=== PATIENT | male | born 1995 | race American Indian/Alaskan Native ===

== ENCOUNTER 2016-11-23 05:08 | Emergency (ER) | payer SELFPAY ==
[2016-11-23] MEDS ORDERED: PROVENTIL IH ONE ×2 (05:27→05:33)
[2016-11-23] MEDS ORDERED: DUONEB *Not for PRN Use IH ONE ×2 (05:27→05:32)
[2016-11-23] MEDS ORDERED: DELTASONE PO ONE (09:43)
--- NOTE | 2016-11-23 09:47 | Emergency Department Report ---
HPI - General Chief Complaint: Adult Asthma Time Seen by Provider: 11/23/16 09:43 - HPI HPI: This is a 21-year-old -Turkish male who presents to the emergency department with a complaint of an asthma exacerbation. The patient says that he was having some wheezing and shortness of breath last night that kept him from getting rest. He was using his albuterol inhaler and nebulized treatments without any relief. However the patient is feeling improved this morning. He denies any fever, chest pain, nausea, vomiting, back pain. No recent travel or sick contacts at home. Asthma is his only past medical history. He does not currently have a primary care physician as he just moved to the area. He is not a tobacco smoker or user. ED Past Medical Hx - Past Medical History Previous Medical History?: Yes Hx Asthma: Yes - Surgical History Past Surgical History?: No - Social History Smoking Status: Never Smoker Substance Use Type: None - Medications Home Medications: Home Medications Medication Instructions Recorded Confirmed Last Taken Type ALBUTEROL Inhaler [ProAir HFA 2 puff IH QID PRN #1 inhalation 11/23/16 Unknown Rx Inhaler] ALBUTEROL NEB's [Proventil 0.083% 2.5 mg IH Q6H PRN #1 box 11/23/16 Unknown Rx NEBS] predniSONE [Deltasone] 20 mg PO BID #8 tab 11/23/16 Unknown Rx ED Review of Systems ROS: Stated complaint: CHARO/ ASTHMA Other details as noted in HPI Comment: All other systems reviewed and negative Constitutional: denies: chills, fever Eyes: denies: eye pain, eye discharge, vision change ENT: denies: ear pain, throat pain Respiratory: shortness of breath, wheezing Cardiovascular: denies: chest pain, palpitations Gastrointestinal: denies: abdominal pain, nausea, diarrhea Genitourinary: denies: urgency, dysuria Musculoskeletal: denies: back pain, joint swelling, arthralgia Skin: denies: rash, lesions Neurological: denies: headache, weakness, paresthesias Physical Exam - Physical Exam Vital Signs: Vital Signs 11/23/16 11/23/16 11/23/16 05:14 05:35 05:50 Temperature 98.0 F Pulse Rate 83 Pulse Rate [ 87 87 Throughout] Respiratory 26 H Rate Respiratory 16 16 Rate [ Throughout] Blood Pressure 129/64 O2 Sat by Pulse 96 Oximetry Physical Exam: GENERAL: The patient is well-developed well-nourished. HEENT: Normocephalic. Atraumatic. Extraocular motions are intact. Patient has moist mucous membranes. NECK: Supple. Trachea is midline. CHEST/LUNGS: Clear to auscultation. There is no respiratory distress noted. HEART/CARDIOVASCULAR: Regular. There is no tachycardia. There is no gallop rub or murmur. ABDOMEN: Abdomen is soft, nontender. Patient has normal bowel sounds. There is no abdominal distention. SKIN: There is no rash. There is no edema. There is no diaphoresis. NEURO: The patient is awake, alert, and oriented. The patient is cooperative. The patient has no focal neurologic deficits. The patient has normal speech. MUSCULOSKELETAL: There is no tenderness or deformity. There is no limitation range of motion. There is no evidence of acute injury. ED Course Vital Signs 11/23/16 11/23/16 11/23/16 05:14 05:35 05:50 Temperature 98.0 F Pulse Rate 83 Pulse Rate [ 87 87 Throughout] Respiratory 26 H Rate Respiratory 16 16 Rate [ Throughout] Blood Pressure 129/64 O2 Sat by Pulse 96 Oximetry ED Medical Decision Making - Medical Decision Making 21-year-old male presents with complaint of asthma exacerbation last night and early this morning but the symptoms have appeared to resolve if not improved. There is no fever or chest pain and no signs of respiratory distress and therefore no imaging appeared to be necessary. There is no current bronchospasm so no DuoNeb or albuterol treatment was given in the emergency department. He was given a dose of prednisone and will go home on a four-day course. He was given a refill prescription of his albuterol inhaler nebulized treatment. He was given referrals for primary care. He will return to the ER with any worsening of symptoms or any acute distress. - Differential Diagnosis asthma, bronchitis, pneumonia Critical Care Time: No Critical care attestation.: If time is entered above; I have spent that time in minutes in the direct care of this critically ill patient, excluding procedure time. ED Disposition Clinical Impression: Asthma exacerbation Disposition: DC-01 TO HOME OR SELFCARE Is pt being admited?: No Condition: Good Instructions: Asthma (ED) Additional Instructions: Please follow-up with a primary care physician in the next few days if possible. Return to the emergency department with any worsening of your symptoms or any acute distress. Prescriptions: ALBUTEROL Inhaler [ProAir HFA Inhaler] 2 puff IH QID PRN #1 inhalation PRN Reason: Shortness Of Breath ALBUTEROL NEB's [Proventil 0.083% NEBS] 2.5 mg IH Q6H PRN #1 box PRN Reason: Wheezing predniSONE [Deltasone] 20 mg PO BID #8 tab Referrals: PRIMARY CAREMD [Primary Care Provider] - 3-5 Days GALI BRIGHT MD [Staff Physician] - 3-5 Days [facility] [Outside] - 3-5 Days Time of Disposition: 09:47
[2016-11-23 10:05] VITALS: BP 126/74
== END 2016-11-23 10:04 | disposition home or self-care (01) ==
LOC: ED 05:08
DX: J45.901 Unspecified asthma with (acute) exacerbation (principal)
CPT/HCPCS: 94640; 99283; J7512

== ENCOUNTER 2019-07-25 18:57 | Emergency (ER) | payer SELFPAY ==
[2019-07-25] MEDS ORDERED: IBUPROFEN 600 MG TAB PO ONE ×2 (19:28→19:32)
[2019-07-25 19:54] LABS: Basophils % (Auto) 0.5 % (0.0-1.8); Eosinophils # (Auto) 0.1 K/mm3 (0.0-0.4); Hematocrit 51.2 % (35.5-45.6); Lymphocytes # (Auto) 0.7 K/mm3 (1.2-5.4); Lymphocytes % (Auto) 9.5 % (13.4-35.0); Mean Corpuscular HGB Conc 35 % (32-34); Mean Corpuscular Volume 92 fl (84-94); Monocytes # (Auto) 1.2 K/mm3 (0.0-0.8); Monocytes % (Auto) 15.3 % (0.0-7.3); Platelet Count 246 K/mm3 (140-440); Red Blood Count 5.59 M/mm3 (3.65-5.03); Red Cell Distribution Width 12.9 % (13.2-15.2)
--- NOTE | 2019-07-25 19:56 | XRay Report ---
CHEST 2 VIEWS INDICATION / CLINICAL INFORMATION: Cough and fever. COMPARISON: None available. FINDINGS: SUPPORT DEVICES: None. HEART / MEDIASTINUM: The heart size and pulmonary vasculature are normal. LUNGS / PLEURA: No significant pulmonary or pleural abnormality. No pneumothorax. ADDITIONAL FINDINGS: There is mild thoracolumbar scoliosis. IMPRESSION: No acute findings. There is no evidence of pneumonia. Signer Name: Tiago Mac MD Signed: 07/25/2019 7:52 PM Workstation Name: [id number]
[2019-07-25 20:14] LABS: Alanine Aminotransferase 13 units/L (7-56); Albumin 4.5 g/dL (3.9-5); BUN/Creatinine Ratio 8; Blood Urea Nitrogen 10 mg/dL (9-20); Calcium 9.5 mg/dL (8.4-10.2); Hemolysis Index 19
[2019-07-25] MEDS ORDERED: dexAMETHasone 20 MG/5 ML VIAL IM ONE (21:22)
[2019-07-25] MEDS ORDERED: IPRATROPIUM/ALBUTEROL SULFATE 3 ML AMPUL.NEB IH ONE (21:22)
[2019-07-25] MEDS ORDERED: ACETAMINOPHEN 325 MG TAB PO ONE (21:23)
--- NOTE | 2019-07-25 22:27 | Emergency Department Report ---
- General Chief Complaint: Adult Asthma Stated Complaint: ASTHMA/BODY PAIN/WEAK Source: patient Mode of arrival: Ambulatory Limitations: No Limitations - History of Present Illness Initial Comments: Patient is a 24-year-old -[place] male with a history of asthma and who does not use any inhalers at home as the exacerbations are occasional presents to the ED with acute onset persistent severe diffuse body aches and pains, nasal and sinus congestion, wheezing, shortness of breath, dry cough, intermittent fever of up to 103 F with chills for the last 24 hours. Patient states that he has been taking [id number] cough decongestants with no relief. Patient denies any knowledge of anyone else at work with similar symptoms or at home. Patient denies dizziness, syncope, chest pain, shortness of breath, abdominal pain, nausea, vomiting, sore throat, dysuria or urinary frequency and urgency and diarrhea. MD Complaint: fever, cough, sore throat, rhinorrhea, nasal congestion, sinus pain, other (diffuse body aches and pain) -: Sudden, hour(s) (24) Severity: severe Severity scale (0 -10): 7 Quality: sharp, aching Consistency: constant Improves With: NSAID Worsens With: nothing Associated Symptoms: denies other symptoms, fever, chills, myalgias, headache, rhinorrhea, nasal congestion, sore throat, cough, shortness of breath. denies: stiff neck, chest pain, abdominal pain, nausea, vomiting, diarrhea, dysuria, rash, confusion, weight loss, epistaxis, ear pain Treatments Prior to Arrival: Acetaminophen - Related Data Previous Rx's Medication Instructions Recorded Last Taken Type ALBUTEROL NEB's [Proventil 0.083% 2.5 mg IH Q6H PRN #1 box 11/23/16 Unknown Rx NEBS] predniSONE [Deltasone] 20 mg PO BID #8 tab 11/23/16 Unknown Rx Albuterol INH(or & Nicu Only) 2 puff IH QID PRN #1 inhalation 07/25/19 Unknown Rx [ProAir HFA Inhaler] Benzonatate [Tessalon Perles] 100 mg PO Q8HR #30 capsule 07/25/19 Unknown Rx Cetirizine HCl [Zyrtec 10mg tab] 10 mg PO DAILY #30 tablet 07/25/19 Unknown Rx Doxycycline Hyclate 100 mg PO Q12H #20 tablet. 07/25/19 Unknown Rx Ibuprofen [Motrin] 600 mg PO Q8H PRN #24 tablet 07/25/19 Unknown Rx methylPREDNISolone [Medrol 4MG 4 mg PO DAILY #21 tab.ds.pk 07/25/19 Unknown Rx DOSEPAK (21 tabs)] Allergies Allergy/AdvReac Type Severity Reaction Status Date / Time No Known Allergies Allergy Verified 11/23/16 05:14 ED Review of Systems ROS: Stated complaint: ASTHMA/BODY PAIN/WEAK Other details as noted in HPI Constitutional: chills, fever, malaise, weakness Eyes: denies: eye pain, eye discharge, vision change ENT: denies: ear pain, throat pain Respiratory: cough, shortness of breath, wheezing Cardiovascular: denies: chest pain, palpitations Endocrine: no symptoms reported Gastrointestinal: denies: abdominal pain, nausea, vomiting, diarrhea Genitourinary: denies: urgency, dysuria Musculoskeletal: back pain, arthralgia, myalgia. denies: joint swelling Skin: denies: rash, lesions Neurological: headache. denies: weakness, paresthesias Psychiatric: denies: anxiety, depression Hematological/Lymphatic: denies: easy bleeding, easy bruising ED Past Medical Hx - Past Medical History Previous Medical History?: Yes Hx Asthma: Yes - Surgical History Past Surgical History?: No - Social History Smoking Status: Never Smoker Substance Use Type: None - Medications Home Medications: Home Medications Medication Instructions Recorded Confirmed Last Taken Type ALBUTEROL NEB's [Proventil 0.083% 2.5 mg IH Q6H PRN #1 box 11/23/16 Unknown Rx NEBS] predniSONE [Deltasone] 20 mg PO BID #8 tab 11/23/16 Unknown Rx Albuterol INH(or & Nicu Only) 2 puff IH QID PRN #1 inhalation 07/25/19 Unknown Rx [ProAir HFA Inhaler] Benzonatate [Tessalon Perles] 100 mg PO Q8HR #30 capsule 07/25/19 Unknown Rx Cetirizine HCl [Zyrtec 10mg tab] 10 mg PO DAILY #30 tablet 07/25/19 Unknown Rx Doxycycline Hyclate 100 mg PO Q12H #20 tablet. 07/25/19 Unknown Rx Ibuprofen [Motrin] 600 mg PO Q8H PRN #24 tablet 07/25/19 Unknown Rx methylPREDNISolone [Medrol 4MG 4 mg PO DAILY #21 tab.ds.pk 07/25/19 Unknown Rx DOSEPAK (21 tabs)] ED Physical Exam - General Limitations: No Limitations General appearance: alert, in no apparent distress - Head Head exam: Present: atraumatic, normocephalic, normal inspection - Eye Eye exam: Present: normal appearance, PERRL, EOMI Pupils: Present: normal accommodation - ENT ENT exam: Present: normal orophraynx, mucous membranes moist, TM's normal bilaterally, normal external ear exam, other (Grossly congested nasal passages) - Neck Neck exam: Present: normal inspection, full ROM. Absent: tenderness - Respiratory Respiratory exam: Present: wheezes (Moderate coarse wheezes throughout). Absent: respiratory distress, chest wall tenderness, accessory muscle use, prolonged expiratory - Cardiovascular Cardiovascular Exam: Present: normal rhythm, tachycardia, normal heart sounds. Absent: systolic murmur, diastolic murmur, rubs, gallop - GI/Abdominal GI/Abdominal exam: Present: soft, normal bowel sounds. Absent: tenderness, guarding, hyperactive bowel sounds, hypoactive bowel sounds - Extremities Exam Extremities exam: Present: normal inspection, full ROM, normal capillary refill - Back Exam Back exam: Present: normal inspection, full ROM. Absent: tenderness, CVA tenderness (R), muscle spasm, paraspinal tenderness, vertebral tenderness - Neurological Exam Neurological exam: Present: alert, oriented X3, CN II-XII intact, normal gait, reflexes normal - Psychiatric Psychiatric exam: Present: normal affect, normal mood - Skin Skin exam: Present: warm, dry, intact, normal color. Absent: rash ED Course Vital Signs 07/25/19 07/25/19 07/25/19 19:01 19:09 19:32 Temperature 99.8 F H 102.5 F H Pulse Rate 121 H 127 H Respiratory 18 18 18 Rate Blood Pressure 121/78 121/78 Blood Pressure [Right] O2 Sat by Pulse 93 93 Oximetry 07/25/19 22:32 Temperature 98.0 F Pulse Rate 94 H Respiratory 16 Rate Blood Pressure Blood Pressure 118/78 [Right] O2 Sat by Pulse 98 Oximetry ED Medical Decision Making - Lab Data Result diagrams: 07/25/19 19:34 07/25/19 19:34 - Radiology Data Radiology results: report reviewed, image reviewed Chest x-ray shows no acute cardiopulmonary abnormalities or pneumonitis - Medical Decision Making This is a 24-year-old male with a history of asthma who presented to the ED with acute onset persistent nasal and sinus congestion, severe diffuse body aches and pains, intermittent fever of up to 103 F with chills, dry cough with wheezing and lack of appetite. In the ED, patient is alert and oriented x3 and is not in distress but febrile and tachycardic in triage. Patient received DuoNeb treatment in the ED and also received steroid and antipyretics. On reevaluation, patient's fever is well controlled with medications. The tachycardia is also well controlled. Chest x-ray shows no acute cardiopulmonary abnormalities or pneumonitis. Rapid influenza and rapid strep test were negative. Patient felt better with the treatment and was discharged home on medications. Patient was advised to follow-up with his primary care physician in 5 to 7 days for reevaluation or return to the ED immediately if symptoms get worse. - Differential Diagnosis Flu; strep pharyngitis; Pneumonia; Bronchitis; URI Critical care attestation.: If time is entered above; I have spent that time in minutes in the direct care of this critically ill patient, excluding procedure time. ED Disposition Clinical Impression: Acute upper respiratory infection, Fever and chills, Flu-like symptoms Asthmatic bronchitis with acute exacerbation Qualifiers: Asthma severity: mild Asthma persistence: intermittent Qualified Code(s): J45.21 - Mild intermittent asthma with (acute) exacerbation Disposition: DC-01 TO HOME OR SELFCARE Is pt being admited?: No Does the pt Need Aspirin: No Condition: Stable Instructions: Asthma (ED), Upper Respiratory Infection (ED), Acute Bronchitis (ED) Additional Instructions: Take medications with food, drink plenty of fluids and follow-up with your primary care physician in 5 to 7 days for reevaluation. Return to the ED immediately if symptoms get worse. Prescriptions: Doxycycline Hyclate 100 mg PO Q12H #20 tablet. methylPREDNISolone [Medrol 4MG DOSEPAK (21 tabs)] 4 mg PO DAILY #21 tab.ds.pk Ibuprofen [Motrin] 600 mg PO Q8H PRN #24 tablet PRN Reason: Pain Albuterol INH(or & Nicu Only) [ProAir HFA Inhaler] 2 puff IH QID PRN #1 inhalation PRN Reason: Shortness Of Breath Benzonatate [Tessalon Perles] 100 mg PO Q8HR #30 capsule Cetirizine HCl [Zyrtec 10mg tab] 10 mg PO DAILY #30 tablet Referrals: [facility] [Outside] - 7-10 days Forms: Work/School Release Form(ED) Time of Disposition: 22:25 Print Language: MAORI
[2019-07-25 22:33] VITALS: BP 118/78
== END 2019-07-25 22:39 | disposition home or self-care (01) ==
LOC: ED 18:57
DX: J45.901 Unspecified asthma with (acute) exacerbation (principal); J06.9 Acute upper respiratory infection, unspecified; J11.1 Influenza due to unidentified influenza virus with other respiratory manifestations
CPT/HCPCS: 36415; 71046; 80053; 82140; 85025; 87116; 87400; 87430; 96372; 99284; J1100

== ENCOUNTER 2019-09-06 09:23 | Emergency (ER) | payer SELFPAY | END 2019-09-06 10:47 | disposition home or self-care (01) | LOC: ED 09:23 | DX: J45.901 Unspecified asthma with (acute) exacerbation (principal); Z79.899 Other long term (current) drug therapy | CPT/HCPCS: 71046; 94640; 99283; J7512 ==

== ENCOUNTER 2019-11-18 06:24 | Emergency (ER) | payer SELFPAY ==
[2019-11-18] MEDS ORDERED: dexAMETHasone 20 MG/5 ML VIAL IM ONE (08:58)
[2019-11-18] MEDS ORDERED: IPRATROPIUM/ALBUTEROL SULFATE 3 ML AMPUL.NEB IH ONE (08:58)
[2019-11-18 09:23] VITALS: BP 133/73
--- NOTE | 2019-11-18 09:23 | Emergency Department Report ---
ED Asthma HPI - General Chief Complaint: Adult Asthma Stated Complaint: ASTHMA Time Seen by Provider: 11/18/19 08:58 Source: patient Mode of arrival: Ambulatory Limitations: No Limitations - History of Present Illness Initial Comments: Patient is a 24-year-old male who presents emergency room with complaints of an asthma exacerbation that began around 1 AM this morning. He has associated shortness of breath and wheezing. He states that he has been out of his albuterol inhaler for a couple of weeks. He states that he accidentally left his nebulizer machine in [place] but plans to go get his machine in the next couple of days and states that he does have nebulizer solution. He denies any fever, vomiting, diarrhea, cough. He denies any recent travel or sick contacts. He does not have a primary care doctor. He states that he is a social smoker even despite his asthma. He denies any other past medical history or allergies to medications. - Related Data Previous Rx's Medication Instructions Recorded Last Taken Type ALBUTEROL NEB's [Proventil 0.083% 2.5 mg IH TID PRN #1 box 09/06/19 Unknown Rx NEBS] Albuterol INH(or & Nicu Only) 2 puff IH QID PRN #1 inhalation 09/06/19 Unknown Rx [ProAir HFA Inhaler] Cetirizine HCl [ZyrTEC 10mg cap] 10 mg PO DAILY #30 capsule 09/06/19 Unknown Rx Fluticasone [Flonase] 1 spray NS QDAY #1 bottle 09/06/19 Unknown Rx predniSONE [Deltasone] 20 mg PO DAILY #5 tablet 09/06/19 Unknown Rx Albuterol INH(or & Nicu Only) 2 puff IH QID PRN #8.5 gram 11/18/19 Unknown Rx [ProAir HFA Inhaler] Prednisone [predniSONE 10 mg 10 mg PO .TAPER #1 tab.ds.pk 11/18/19 Unknown Rx (6-Day Pack, 21 Tabs)] Allergies Allergy/AdvReac Type Severity Reaction Status Date / Time No Known Allergies Allergy Verified 11/18/19 07:03 ED Review of Systems ROS: Stated complaint: ASTHMA Other details as noted in HPI Comment: All other systems reviewed and negative ED Past Medical Hx - Past Medical History Hx Asthma: Yes - Social History Smoking Status: Never Smoker Substance Use Type: Alcohol, Marijuana - Medications Home Medications: Home Medications Medication Instructions Recorded Confirmed Last Taken Type ALBUTEROL NEB's [Proventil 0.083% 2.5 mg IH TID PRN #1 box 09/06/19 Unknown Rx NEBS] Albuterol INH(or & Nicu Only) 2 puff IH QID PRN #1 inhalation 09/06/19 Unknown Rx [ProAir HFA Inhaler] Cetirizine HCl [ZyrTEC 10mg cap] 10 mg PO DAILY #30 capsule 09/06/19 Unknown Rx Fluticasone [Flonase] 1 spray NS QDAY #1 bottle 09/06/19 Unknown Rx predniSONE [Deltasone] 20 mg PO DAILY #5 tablet 09/06/19 Unknown Rx Albuterol INH(or & Nicu Only) 2 puff IH QID PRN #8.5 gram 11/18/19 Unknown Rx [ProAir HFA Inhaler] Prednisone [predniSONE 10 mg 10 mg PO .TAPER #1 tab.ds.pk 11/18/19 Unknown Rx (6-Day Pack, 21 Tabs)] ED Physical Exam - General Limitations: No Limitations General appearance: alert, in no apparent distress - Head Head exam: Present: atraumatic, normocephalic - Eye Eye exam: Present: normal appearance - ENT ENT exam: Present: mucous membranes moist - Respiratory Respiratory exam: Present: wheezes (bilaterally lower lungs). Absent: respiratory distress, rales, rhonchi, stridor, chest wall tenderness, accessory muscle use, decreased breath sounds, prolonged expiratory - Cardiovascular Cardiovascular Exam: Present: regular rate, normal rhythm, normal heart sounds. Absent: systolic murmur, diastolic murmur, rubs, gallop - Neurological Exam Neurological exam: Present: alert, oriented X3 - Psychiatric Psychiatric exam: Present: normal affect, normal mood - Skin Skin exam: Present: warm, dry, intact ED Course Vital Signs 11/18/19 07:01 Temperature 97.8 F Pulse Rate 86 Respiratory 18 Rate Blood Pressure 133/73 O2 Sat by Pulse 97 Oximetry ED Medical Decision Making - Medical Decision Making Patient is a 24-year-old male who presents emergency room with complaints of an asthma exacerbation that began around 1 AM this morning. He has associated shortness of breath and wheezing. He states that he has been out of his albuterol inhaler for a couple of weeks. He states that he accidentally left his nebulizer machine in [place] but plans to go get his machine in the next couple of days and states that he does have nebulizer solution. He denies any fever, vomiting, diarrhea, cough. He denies any recent travel or sick contacts. He does not have a primary care doctor. He states that he is a social smoker even despite his asthma. He denies any other past medical history or allergies to medications. vitals are normal. on exam: wheezing present in the bilaterally lower lungs, no rhonchi, no rales, no respiratory distress, no accessory muscle use, no stridor. Patient given DuoNeb and dexamethasone injection. After treatment, wheezing has completely resolved and patient is feeling much better and ready to go home. Patient given prescription for albuterol inhaler and prednisone Dosepak. Advised patient to please take medication as prescribed. Please follow-up with a primary care doctor for management of your chronic asthma. Avoid smoking. Return to emergency room for any new or worsening symptoms. Critical care attestation.: If time is entered above; I have spent that time in minutes in the direct care of this critically ill patient, excluding procedure time. ED Disposition Clinical Impression: Asthma Qualifiers: Asthma severity: unspecified severity Asthma persistence: unspecified Asthma complication type: with acute exacerbation Qualified Code(s): J45.901 - Unsp ecified asthma with (acute) exacerbation Disposition: DC-01 TO HOME OR SELFCARE Is pt being admited?: No Does the pt Need Aspirin: No Condition: Stable Instructions: Asthma (ED) Additional Instructions: please take medication as prescribed. Please follow-up with a primary care doctor for management of your chronic asthma. Avoid smoking. Return to emergency room for any new or worsening symptoms. Prescriptions: Prednisone [predniSONE 10 mg (6-Day Pack, 21 Tabs)] 10 mg PO .TAPER #1 tab.ds.pk Albuterol INH(or & Nicu Only) [ProAir HFA Inhaler] 2 puff IH QID PRN #8.5 gram PRN Reason: Shortness Of Breath Referrals: SHARRI ALDRIDGE MD [Staff Physician] - 3-5 Days [facility] [Provider Group] - 3-5 Days [facility] [place] [Outside] - 3-5 Days [facility] [Outside] - 3-5 Days Time of Disposition: 10:35 Print Language: BENGALI
== END 2019-11-18 10:55 | disposition home or self-care (01) ==
LOC: ED 06:24
DX: J44.9 Chronic obstructive pulmonary disease, unspecified (principal); F17.200 Nicotine dependence, unspecified, uncomplicated
CPT/HCPCS: 94640; 96372; 99282; J1100

== ENCOUNTER 2020-01-30 08:07 | Emergency (ER) | payer SELFPAY ==
[2020-01-30] MEDS ORDERED: IPRATROPIUM/ALBUTEROL SULFATE 3 ML AMPUL.NEB IH ONE ×2 (08:38→08:41)
[2020-01-30] MEDS ORDERED: dexAMETHasone 20 MG/5 ML VIAL IM ONE (08:58)
--- NOTE | 2020-01-30 09:39 | Emergency Department Report ---
ED Asthma HPI - General Chief Complaint: Adult Asthma Stated Complaint: ASTHMA Time Seen by Provider: 01/30/20 08:57 Source: patient Mode of arrival: Ambulatory Limitations: No Limitations - History of Present Illness Initial Comments: This is a 24-year-old male nontoxic, well nourished in appearance, no acute signs of distress presents to the ED with c/o of acute on chronic asthma exacerbation. Patient denies any cough. Patient denies any sick contact. Patient denies any recent travels, long car, recent hospital stays. Patient denies any calf pain or calf tenderness. Patient denies any chest pain, short of breath, fever, chills, nausea, vomiting, hemoptysis, numbness, tingling, headache or stiff neck. Past medical history includes asthma. MD Complaint: "asthma attack", shortness of breath, wheezing -: This morning Asthma History: childhood onset Severity: mild Context: none known Associated Symptoms: none Treatments Prior to Arrival: inhaled bronchodilator - Related Data Current Asthma Therapy: none Previous Rx's Medication Instructions Recorded Last Taken Type ALBUTEROL NEB's [Proventil 0.083% 2.5 mg IH TID PRN #1 box 09/06/19 Unknown Rx NEBS] Albuterol Mdi (or & Nicu Only) 2 puff IH QID PRN #1 inhalation 09/06/19 Unknown Rx [ProAir HFA Inhaler] Cetirizine HCl [ZyrTEC 10mg cap] 10 mg PO DAILY #30 capsule 09/06/19 Unknown Rx Fluticasone [Flonase] 1 spray NS QDAY #1 bottle 09/06/19 Unknown Rx predniSONE [Deltasone] 20 mg PO DAILY #5 tablet 09/06/19 Unknown Rx Albuterol Mdi (or & Nicu Only) 2 puff IH QID PRN #8.5 gram 11/18/19 Unknown Rx [ProAir HFA Inhaler] Prednisone [predniSONE 10 mg 10 mg PO .TAPER #1 tab.ds.pk 11/18/19 Unknown Rx (6-Day Pack, 21 Tabs)] ALBUTEROL NEB's [Proventil 0.083% 2.5 mg IH TID PRN #1 neb 01/30/20 Unknown Rx NEBS] Albuterol Sulfate [Albuterol 0.63% 0.63 mg IH TID PRN #1 box 01/30/20 Unknown Rx NEBS] Prednisone [predniSONE 10 mg 10 mg PO .TAPER #1 tab.ds.pk 01/30/20 Unknown Rx (6-Day Pack, 21 Tabs)] Allergies Allergy/AdvReac Type Severity Reaction Status Date / Time No Known Allergies Allergy Verified 01/30/20 08:42 ED Review of Systems ROS: Stated complaint: ASTHMA Other details as noted in HPI Constitutional: denies: chills, fever Eyes: denies: eye pain, eye discharge, vision change ENT: denies: ear pain, throat pain Respiratory: shortness of breath, wheezing. denies: cough Cardiovascular: denies: chest pain, palpitations Endocrine: no symptoms reported Gastrointestinal: denies: abdominal pain, nausea, diarrhea Genitourinary: denies: urgency, dysuria Musculoskeletal: denies: back pain, joint swelling, arthralgia Skin: denies: rash, lesions Neurological: denies: headache, weakness, paresthesias Psychiatric: denies: anxiety, depression Hematological/Lymphatic: denies: easy bleeding, easy bruising ED Past Medical Hx - Past Medical History Previous Medical History?: Yes Hx Asthma: Yes - Surgical History Past Surgical History?: No - Social History Smoking Status: Never Smoker Substance Use Type: Prescribed - Medications Home Medications: Home Medications Medication Instructions Recorded Confirmed Last Taken Type ALBUTEROL NEB's [Proventil 0.083% 2.5 mg IH TID PRN #1 box 09/06/19 Unknown Rx NEBS] Albuterol Mdi (or & Nicu Only) 2 puff IH QID PRN #1 inhalation 09/06/19 Unknown Rx [ProAir HFA Inhaler] Cetirizine HCl [ZyrTEC 10mg cap] 10 mg PO DAILY #30 capsule 09/06/19 Unknown Rx Fluticasone [Flonase] 1 spray NS QDAY #1 bottle 09/06/19 Unknown Rx predniSONE [Deltasone] 20 mg PO DAILY #5 tablet 09/06/19 Unknown Rx Albuterol Mdi (or & Nicu Only) 2 puff IH QID PRN #8.5 gram 11/18/19 Unknown Rx [ProAir HFA Inhaler] Prednisone [predniSONE 10 mg 10 mg PO .TAPER #1 tab.ds.pk 11/18/19 Unknown Rx (6-Day Pack, 21 Tabs)] ALBUTEROL NEB's [Proventil 0.083% 2.5 mg IH TID PRN #1 neb 01/30/20 Unknown Rx NEBS] Albuterol Sulfate [Albuterol 0.63% 0.63 mg IH TID PRN #1 box 01/30/20 Unknown Rx NEBS] Prednisone [predniSONE 10 mg 10 mg PO .TAPER #1 tab.ds.pk 01/30/20 Unknown Rx (6-Day Pack, 21 Tabs)] ED Physical Exam - General Limitations: No Limitations General appearance: alert, in no apparent distress - Head Head exam: Present: atraumatic, normocephalic - Eye Eye exam: Present: normal appearance - Neck Neck exam: Present: normal inspection, full ROM. Absent: tenderness, meningismus, lymphadenopathy - Respiratory Respiratory exam: Present: wheezes. Absent: respiratory distress, rales, rhonchi, stridor, chest wall tenderness, accessory muscle use, decreased breath sounds, prolonged expiratory - Cardiovascular Cardiovascular Exam: Present: regular rate, normal rhythm, normal heart sounds. Absent: bradycardia, tachycardia, irregular rhythm, systolic murmur, diastolic murmur, rubs, gallop - Extremities Exam Extremities exam: Present: normal inspection, full ROM - Back Exam Back exam: Present: normal inspection, full ROM - Neurological Exam Neurological exam: Present: alert, oriented X3, normal gait - Psychiatric Psychiatric exam: Present: normal affect, normal mood - Skin Skin exam: Present: warm, dry, intact, normal color. Absent: rash ED Course Vital Signs 01/30/20 01/30/20 01/30/20 08:13 09:09 09:12 Temperature 98 F Pulse Rate 84 62 Respiratory 20 20 20 Rate Blood Pressure 93/47 O2 Sat by Pulse 93 100 Oximetry - Reevaluation(s) Reevaluation #1: 01/30/20 09:37 Patient is speaking in full sentences with no signs of distress noted. ED Medical Decision Making - Medical Decision Making This is a 24-year-old male that presents with asthma exacerbation. Patient is stable and was examined by me. Patient is notified of the x-ray report with no questions noted by the patient. Patient did receive DuoNeb and steroids in the ED which patient the symptoms has resolved and subsided. Posttreatment and there is no wheezing upon auscultation. Patient is discharged with albuterol and prednisone. Patient was referred to Follow-up with a primary care doctor in 3-5 days or if symptoms worsen and continue return to emergency room as soon as possible. At time of discharge, the patient does not seem toxic or ill in appearance. No acute signs of distress noted. Patient agrees to discharge treatment plan of care. No further questions noted by the patient. This chart is dictated with using [employer]ation [employer] Critical care attestation.: If time is entered above; I have spent that time in minutes in the direct care of this critically ill patient, excluding procedure time. ED Disposition Clinical Impression: Acute asthma exacerbation Qualifiers: Asthma severity: mild Asthma persistence: intermittent Qualified Code(s): J45.21 - Mild intermittent asthma with (acute) exacerbation Disposition: TO HOME OR SELFCARE Is pt being admited?: No Does the pt Need Aspirin: No Condition: Stable Instructions: Asthma (ED) Additional Instructions: Follow-up with a primary care doctor in 3-5 days or if symptoms worsen and continue return to emergency room as soon as possible. Prescriptions: Albuterol Sulfate [Albuterol 0.63% NEBS] 0.63 mg IH TID PRN #1 box PRN Reason: Wheezing Prednisone [predniSONE 10 mg (6-Day Pack, 21 Tabs)] 10 mg PO .TAPER #1 tab.ds.pk ALBUTEROL NEB's [Proventil 0.083% NEBS] 2.5 mg IH TID PRN #1 neb PRN Reason: Wheezing Referrals: PRIMARY CAREMD [Primary Care Provider] - 3-5 Days SHARRI ALDRIDGE MD [Staff Physician] - 3-5 Days Forms: Work/School Release Form(ED)
[2020-01-30 09:57] VITALS: BP 110/72
== END 2020-01-30 09:57 | disposition home or self-care (01) ==
LOC: ED 08:07
DX: J45.901 Unspecified asthma with (acute) exacerbation (principal); Z79.899 Other long term (current) drug therapy
CPT/HCPCS: 94640; 96372; 99282; J1100; 94644

== ENCOUNTER 2020-03-31 01:25 | Emergency (ER) | payer SELFPAY ==
[2020-03-31 02:14] VITALS: BP 135/95
[2020-03-31] MEDS ORDERED: IBUPROFEN 800 MG TAB PO ONE (06:00)
[2020-03-31] MEDS ORDERED: ALBUTEROL 2.5 MG/3 ML NEBU IH ONE (06:00)
[2020-03-31] MEDS ORDERED: predniSONE 20 MG TAB PO ONE (06:00)
--- NOTE | 2020-03-31 06:08 | Emergency Department Report ---
ED Asthma HPI - General Chief Complaint: Adult Asthma Stated Complaint: DIFFICULTY BREATHING SOB Time Seen by Provider: 03/31/20 06:00 Source: patient Mode of arrival: Ambulatory Limitations: No Limitations - History of Present Illness Initial Comments: Patient is a 25-year-old -[place] male with history of asthma who presents with shortness of breath and wheezing x2 days. Patient is out of albuterol inhaler. There is no fever, chills, nausea vomiting, chest pain. Symptoms are exacerbated by activity. Symptoms are relieved by albuterol ho wever patient is out of medication. Patient rates symptoms at 310. MD Complaint: wheezing - Related Data Previous Rx's Medication Instructions Recorded Last Taken Type ALBUTEROL NEB's [Proventil 0.083% 2.5 mg IH TID PRN #1 box 09/06/19 Unknown Rx NEBS] Albuterol Mdi (or & Nicu Only) 2 puff IH QID PRN #1 inhalation 09/06/19 Unknown Rx [ProAir HFA Inhaler] Cetirizine HCl [ZyrTEC 10mg cap] 10 mg PO DAILY #30 capsule 09/06/19 Unknown Rx Fluticasone [Flonase] 1 spray NS QDAY #1 bottle 09/06/19 Unknown Rx predniSONE [Deltasone] 20 mg PO DAILY #5 tablet 09/06/19 Unknown Rx Albuterol Mdi (or & Nicu Only) 2 puff IH QID PRN #8.5 gram 11/18/19 Unknown Rx [ProAir HFA Inhaler] Prednisone [predniSONE 10 mg 10 mg PO .TAPER #1 tab.ds.pk 11/18/19 Unknown Rx (6-Day Pack, 21 Tabs)] ALBUTEROL NEB's [Proventil 0.083% 2.5 mg IH TID PRN #1 neb 01/30/20 Unknown Rx NEBS] Albuterol Sulfate [Albuterol 0.63% 0.63 mg IH TID PRN #1 box 01/30/20 Unknown Rx NEBS] Prednisone [predniSONE 10 mg 10 mg PO .TAPER #1 tab.ds.pk 01/30/20 Unknown Rx (6-Day Pack, 21 Tabs)] Albuterol Mdi (or & Nicu Only) 2 puff IH QID PRN #8.5 gram 03/31/20 Unknown Rx [ProAir HFA Inhaler] predniSONE [Deltasone] 40 mg PO QDAY 5 Days #10 tab 03/31/20 Unknown Rx Allergies Allergy/AdvReac Type Severity Reaction Status Date / Time No Known Allergies Allergy Verified 01/30/20 08:42 ED Review of Systems ROS: Stated complaint: DIFFICULTY BREATHING SOB Other details as noted in HPI Constitutional: denies: chills, fever Eyes: denies: eye pain, eye discharge, vision change ENT: denies: ear pain, throat pain Respiratory: shortness of breath, wheezing. denies: cough Cardiovascular: denies: chest pain, palpitations Endocrine: no symptoms reported Gastrointestinal: denies: abdominal pain, nausea, diarrhea Genitourinary: denies: urgency, dysuria Musculoskeletal: denies: back pain, joint swelling, arthralgia Skin: denies: rash, lesions Neurological: denies: headache, weakness, paresthesias Psychiatric: denies: anxiety, depression Hematological/Lymphatic: denies: easy bleeding, easy bruising ED Past Medical Hx - Past Medical History Previous Medical History?: Yes Hx Asthma: Yes - Surgical History Past Surgical History?: No - Social History Smoking Status: Never Smoker Substance Use Type: None - Medications Home Medications: Home Medications Medication Instructions Recorded Confirmed Last Taken Type ALBUTEROL NEB's [Proventil 0.083% 2.5 mg IH TID PRN #1 box 09/06/19 Unknown Rx NEBS] Albuterol Mdi (or & Nicu Only) 2 puff IH QID PRN #1 inhalation 09/06/19 Unknown Rx [ProAir HFA Inhaler] Cetirizine HCl [ZyrTEC 10mg cap] 10 mg PO DAILY #30 capsule 09/06/19 Unknown Rx Fluticasone [Flonase] 1 spray NS QDAY #1 bottle 09/06/19 Unknown Rx predniSONE [Deltasone] 20 mg PO DAILY #5 tablet 09/06/19 Unknown Rx Albuterol Mdi (or & Nicu Only) 2 puff IH QID PRN #8.5 gram 11/18/19 Unknown Rx [ProAir HFA Inhaler] Prednisone [predniSONE 10 mg 10 mg PO .TAPER #1 tab.ds.pk 11/18/19 Unknown Rx (6-Day Pack, 21 Tabs)] ALBUTEROL NEB's [Proventil 0.083% 2.5 mg IH TID PRN #1 neb 01/30/20 Unknown Rx NEBS] Albuterol Sulfate [Albuterol 0.63% 0.63 mg IH TID PRN #1 box 01/30/20 Unknown Rx NEBS] Prednisone [predniSONE 10 mg 10 mg PO .TAPER #1 tab.ds.pk 01/30/20 Unknown Rx (6-Day Pack, 21 Tabs)] Albuterol Mdi (or & Nicu Only) 2 puff IH QID PRN #8.5 gram 03/31/20 Unknown Rx [ProAir HFA Inhaler] predniSONE [Deltasone] 40 mg PO QDAY 5 Days #10 tab 03/31/20 Unknown Rx ED Physical Exam - General Limitations: No Limitations General appearance: alert, in no apparent distress - Head Head exam: Present: atraumatic, normocephalic - Eye Eye exam: Present: normal appearance, EOMI Pupils: Present: normal accommodation - ENT ENT exam: Present: normal orophraynx, mucous membranes moist - Neck Neck exam: Present: normal inspection, full ROM. Absent: tenderness, lymphadenopathy - Respiratory Respiratory exam: Present: wheezes. Absent: respiratory distress, rales, rhonchi, stridor, chest wall tenderness - Expanded Respiratory Exam Expanded Location: Wheezes: Right, Left, Upper - Cardiovascular Cardiovascular Exam: Present: regular rate, normal rhythm, normal heart sounds. Absent: systolic murmur, diastolic murmur, rubs, gallop - GI/Abdominal GI/Abdominal exam: Present: soft, normal bowel sounds. Absent: distended, tenderness - Rectal Rectal exam: Present: deferred - Extremities Exam Extremities exam: Present: normal inspection, full ROM, normal capillary refill. Absent: tenderness - Back Exam Back exam: Present: normal inspection, full ROM. Absent: tenderness - Neurological Exam Neurological exam: Present: alert, oriented X3, CN II-XII intact, normal gait - Psychiatric Psychiatric exam: Present: normal affect, normal mood - Skin Skin exam: Present: warm, dry, intact, normal color. Absent: rash ED Course Vital Signs 03/31/20 02:12 Temperature 97.8 F Pulse Rate 67 Respiratory 18 Rate Blood Pressure 135/95 O2 Sat by Pulse 96 Oximetry ED Medical Decision Making - Medical Decision Making this is asthma exacerbation, symptoms mild , plan: refill albuterol inhaler, short burst steroids, follow up with pcp in 2-3 days. pt verbalized agreement and understanding of discharge plan. Critical care attestation.: If time is entered above; I have spent that time in minutes in the direct care of this critically ill patient, excluding procedure time. ED Disposition Clinical Impression: Asthma Qualifiers: Asthma severity: mild Asthma persistence: intermittent Asthma complication type: with acute exacerbation Qualified Code(s): J45.21 - Mild intermittent asthma with (acute) exacerbation Disposition: TO HOME OR SELFCARE Is pt being admited?: No Does the pt Need Aspirin: No Condition: Stable Instructions: Asthma (ED), Asthma, Adult Prescriptions: predniSONE [Deltasone] 40 mg PO QDAY 5 Days #10 tab Albuterol Mdi (or & Nicu Only) [ProAir HFA Inhaler] 2 puff IH QID PRN #8.5 gram PRN Reason: Shortness Of Breath Referrals: BOGDAN GORDON MD [Staff Physician] - 3-5 Days Forms: Work/School Release Form(ED) Time of Disposition: 06:12
== END 2020-03-31 06:45 | disposition home or self-care (01) ==
LOC: ED 01:25
DX: J45.909 Unspecified asthma, uncomplicated (principal); Z79.899 Other long term (current) drug therapy
CPT/HCPCS: 99283; J7512